=== PATIENT | female | born 1960 | race Caucasian/White ===

== ENCOUNTER → 2019-12-18 10:06 | Outpatient (CLI) | payer OTHER, SELFPAY ==
[2019-12-18 12:54] LABS: Alanine Aminotransferase 44 IU/L (<35); Albumin 4.6 g/dL (3.5-5.0); Albumin Globulin Ratio 1.5 (1.0-2.8); Alkaline Phosphatase 93 U/L (38-126); Aspartate Aminotransferase 34 IU/L (14-36); Bilirubin Total 0.6 mg/dL (0.2-1.3); Blood Urea Nitrogen 15 mg/dL (7-17); Calcium 10.2 mg/dL (8.4-10.2); Carbon Dioxide 28 mmol/L (22-32); Chloride 103 mmol/L (98-107); Globulin 3.1 g/dL (1.7-4.1); Glucose 101 mg/dL (70-100); HEMOLYSIS < 15 (0-50); Potassium 5.1 mmol/L (3.4-5.1); Sodium 140 mmol/L (137-145); Total Protein 7.7 g/dL (6.3-8.2)
[2019-12-18 13:01] LABS: BUN Creatinine Ratio 19.7 (6-22); Estimated Glomerular Filt Rate > 60.0 mL/min (>60)
== END ==
PROVIDERS: Referring Provider Urology; Visit Provider Urology
DX: Q62.11 Congenital occlusion of ureteropelvic junction (principal)
CPT/HCPCS: 36415; 80053

== ENCOUNTER → 2019-12-19 09:32 | Outpatient (CLI) | payer OTHER, SELFPAY ==
--- NOTE | 2019-12-19 | DI.MG.S_ITS ---
BILATERAL DIGITAL SCREENING MAMMOGRAM 3D/2D WITH CAD: 12/19/2019 CLINICAL: Routine screening. Comparison is made to exams dated: 09/22/2018 mammogram, 08/17/2017 mammogram, and 07/28/2016 mammogram - [facility]. There are scattered fibroglandular elements in both breasts. Current study was also evaluated with a Computer Aided Detection (CAD) system. No significant masses, calcifications, or other findings are seen in either breast. There has been no significant interval change. IMPRESSION: NEGATIVE There is no mammographic evidence of malignancy. A 1 year screening mammogram is recommended. This exam was interpreted at Station ID: [id number]. NOTE: For mammograms, a report in lay terms will be sent to the patient. Approximately 15% of breast malignancies will not be visualized mammographically. In the management of a palpable breast mass, a negative mammogram must not discourage biopsy of a clinically suspicious lesion. Electronically Signed By: Jamie gaona/shi:12/19/2019 10:11:08 letter sent: Normal Exam ACR BI-RADS Category 1: Negative 3341F
--- NOTE | 2019-12-19 | DI.NM.S_ITS ---
PROCEDURE: NM RENAL FUNCTION W LASIX RADIOPHARMACEUTICAL: 10.5 mCi Tc-99m MAG3 IV and 40 mg furosemide IV. INDICATIONS: Congenital occlusion of ureterop TECHNIQUE: The patient was hydrated orally before the examination was begun. After intravenous administration of Tc-99m MAG3, posterior abdominal radionuclide angiogram and sequential (1 minute each frame) renal images were obtained. A time-activity curve for each kidney was generated and analyzed. To evaluate for obstruction, the patient was given 40 mg furosemide via slow intravenous injection after the start of the examination. Sequential images were obtained for up to an additional 20 minutes. COMPARISON: None. FINDINGS: Perfusion: There is normal vascular flow to both kidneys. Morphology: Both kidneys are normal in size and shape. No dilated collecting systems are seen. The ureters and bladder fill with tracer, and appear normal. Function: Both kidneys demonstrate normal cortical tracer uptake, with gknz-jh-tzuh activity ranging from 3 to 5 minutes. The right kidney contributes 42.5% of total renal function. The left kidney contributes 57.5% of total renal function. Lasix stimulation: After diuretic administration, there is prompt clearance of tracer activity from the renal collecting systems in both kidneys. The half-time of emptying of tracer activity from the right pelvicaliceal system is 4.7 minutes. The half-time of emptying from the left pelvicaliceal system is 5.2 minutes. Normal emptying half-times are less than 10 minutes; borderline ranges are from 10 to 20 minutes. IMPRESSION: 1. Normal radionuclide renogram. 2. Right kidney contributes 42.5% of total renal function. Left kidney contributes 57.5% of total renal function. 3. No evidence for renal obstruction. Dictated by: Pankaj Chao M.D. on 12/19/2019 at 11:58 Approved by: Pankaj Chao M.D. on 12/19/2019 at 12:09
== END ==
PROVIDERS: PCP Family Medicine; Referring Provider Family Medicine; Visit Provider Family Medicine
DX: Z12.31 Encounter for screening mammogram for malignant neoplasm of breast (principal); Q62.11 Congenital occlusion of ureteropelvic junction
CPT/HCPCS: 77063; 77067; 78708; A9562

== ENCOUNTER → 2020-04-20 09:18 | Outpatient (CLI) | payer OTHER, SELFPAY ==
[2020-04-21 09:46] LABS: COVID19 Sendout Not Detected (Not Detect)
== END ==
PROVIDERS: PCP Family Medicine; Visit Provider Nurse Practitioner
DX: Z11.59 Encounter for screening for other viral diseases (principal)
CPT/HCPCS: 87635

== ENCOUNTER 2020-04-23 08:47 | Day surgery (SDC) | payer OTHER, SELFPAY ==
[2020-04-23] VITALS (7 sets, daily range): BP systolic 95–141; BP diastolic 60–77; PULSE 54–74; RESP 12–20; TEMP 36.3–36.9; O2SAT 95–98; BMI 22.3
--- NOTE | 2020-04-23 | PATH_ITS ---
[facility] Accession Number: [id number] . 01 Material submitted: . PART A: colon - R COLON BX PART B: colon - L COLON BX PART C: colon - DESCENDING COLON POLYP . 01 Clinical history: . SDC . 02 Diagnosis: A-B. Right Colon, Left Colon, Biopsies: Colonic mucosa with no diagnostic abnormality. Negative for active, chronic, and microscopic colitis. Negative for dysplasia and malignancy. . C. Descending Colon, Polyp, Biopsy: Tubular adenoma. [facility] 04/25/2020 1635 Local . 02 Electronically signed: . Irma Laurent MD, Pathologist NPI- [id number] . 01 Gross description: . Part A: R COLON BX: Received in formalin are multiple fragment(s) of mahajan, soft tissue measuring 1.2 x 0.8 x 0.2 cm in aggregate submitted entirely in 1 cassette(s) Part B: L COLON BX: Received in formalin are multiple fragment(s) of mahajan, soft tissue measuring 0.8 x 0.6 x 0.2 cm in aggregate submitted entirely in 1 cassette(s) Part C: DESCENDING COLON POLYP: Received in formalin are 2 fragment(s) of mahajan, soft tissue measuring 0.9 x 0.8 x 0.2 cm to 0.6 x 0.2 x 0.1 cm submitted entirely in 1 cassette(s) /QMAGGIE 04/24/2020 1011 Local . 02 Pathologist provided ICD-10: R19.7, D12.4 . 02 CPT . 220643, 941610, 789266 Performed at: [address], [place], [place] [id number] MD Maciej River MD Phone: [phone] Performed at: 02 [facility] [address] [place] [id number] MD Irma Laurent MD Phone: [phone]
--- NOTE | 2020-04-23 07:56 | PM.HP.1 ---
History of Present Illness History of Present Illness Date Patient Seen: 04/23/20 Chief complaint: SDC Narrative: 59-year-old female who I had seen on 03/06/2020 due to chronic diarrhea with here for further evaluation. She continues to have loose stools although has some formed stools on occasion Meds Home Medications and Allergies Home Medications Medication Instructions Recorded Confirmed Type No Known Home Medications 04/23/20 04/23/20 History Allergies Allergy/AdvReac Type Severity Reaction Status Date / Time No Known Drug Allergies Allergy Verified 04/23/20 09:01 Exam Narrative Exam Narrative: General: Patient is well developed, not in apparent distress Cardiovascular: Regular rate and rhythm, no murmurs, rubs, or gallops; no evidence of edema; no palpable abdominal aortic aneurysm Gastrointestinal: Normoactive bowel sounds, soft, nontender, nondistended, no rebound tenderness, no hepatosplenomegaly, no evidence of hernia Assessment & Plan Assessment & Plan narrative: 59-year-old female who is here for further evaluation of chronic diarrhea by means of colonoscopy Regarding the procedure(s), the risks and potential complications, benefits, and alternatives (including not doing the procedure) were discussed with the patient. The risks include but are not limited to bleeding, splenic injury, infection, perforation which may require surgical intervention, missed lesions, and adverse reactions to sedative medicines. After a question and answer period, the patient agreed to proceed with the procedure(s) and gives informed consent.
[2020-04-23] MEDS: SODIUM CHLORIDE 0.9% 1,000 ML 70 ML IV (09:01)
[2020-04-23] MEDS: fentaNYL 250 MCG/5 ML INJ IV (09:46)
[2020-04-23] MEDS: MIDAZOLAM 5 MG/5 ML VIAL IV (09:46)
--- NOTE | 2020-04-23 09:47 | PM.OP.ENDO ---
Operative Date/Time/Diagnoses Date of procedure: 04/23/20 Procedure Notes Procedure in detail: Surgeon: Vadim Scott MD Procedure: Colonoscopy with polypectomy and biopsy Preoperative diagnosis: Chronic diarrhea Postoperative diagnosis: Descending colon polyp status post polypectomy; grade 2 internal hemorrhoids Medications: Conscious sedation using 6 mg IV of Midazolam and 100 mcg IV of Fentanyl Preanesthesia Assessment An H and P was performed/updated and the Px?s ASA class is 1. Risks and complications including infection, bleeding, missed lesions, perforation, need for surgery in case of perforation, prolonged hospital stay, and were explained. A brief question and answer period was allotted and once all questions were answered, informed consent was obtained. The patient was brought back to the procedure room and placed on standard monitoring. The patient?s vital signs were monitored continuously throughout the entire procedure. Prior to starting, a timeout was performed to confirm the patient?s identity, allergies, medications, and procedure. Procedure in detail The patient was placed in left lateral decubitus position and once adequate sedation was obtained a TIBURCIO was performed. The digital rectal examination did not reveal any palpable lesions. The tip of the colonoscope was placed in the anal canal and advanced without difficulty all the way to the cecum which was identified by the appendiceal orifice and the ileocecal valve. The terminal ileum was intubated to a distance of 5 cm from the ileocecal valve and the mucosa appeared normal. The colonoscope was then brought back to the cecum and careful examination of all stern of the colon was performed with irrigation of any residual stool. The colonic mucosa appeared normal throughout the entire colon. Biopsies were taken from the right and left colon to rule out microscopic colitis. Bleeding from biopsies with minimal In the descending colon, a 3 mm sessile polyp was removed by means of cold snare. Resection and retrieval was complete minimal bleeding. Retroflexion was performed in the rectum which revealed grade 2 internal hemorrhoids The patient tolerated the procedure well and will be brought back to the recovery area to be discharged once criteria are met. The prep was judged to be good and adequate to identify polyps less than 5 mm. The withdrawal time was 9 minutes. The total physician intraservice time was 16 minutes. Complications There were no complications and estimated blood loss was minimal. Recommendations: Resume previous diet; consider doing a lactose-free diet Use probiotics daily for at least 1 month, if you are not doing so already Follow up pathology results Repeat colonoscopy in 5 or 7 or 10 years depending on pathology results Call our office ([facility]) to schedule follow-up with me in 1-2 months if you have persistent symptoms An emergency contact number was given to the patient for any complications related to the procedure
== END 2020-04-23 10:45 | disposition home or self-care (01) ==
PROVIDERS: PCP Family Medicine; Referring Provider Family Medicine; Visit Provider Internal Medicine Gastroenterology
PROC: 0DJD8ZZ Inspection of Lower Intestinal Tract, Via Natural or Artificial Opening Endoscopic (ICD-10-PCS; CPT 45378; principal; 2020-04-23 10:00)
DX: K52.9 Noninfective gastroenteritis and colitis, unspecified (principal); K64.1 Second degree hemorrhoids; D12.4 Benign neoplasm of descending colon
CPT/HCPCS: 45385; J2250; J3010

== ENCOUNTER → 2021-03-28 08:52 | Outpatient (CLI) | payer OTHER, SELFPAY ==
--- NOTE | 2021-03-28 | DI.MG.S_ITS ---
BILATERAL DIGITAL SCREENING MAMMOGRAM 3D/2D WITH CAD: 03/28/2021 CLINICAL: Routine screening. Family history of breast cancer. Comparison is made to exams dated: 12/19/2019 mammogram - [facility], 09/22/2018 mammogram, 08/17/2017 mammogram, and 07/28/2016 mammogram - [facility]. There are scattered fibroglandular elements in both breasts. Current study was also evaluated with a Computer Aided Detection (CAD) system. No significant masses, calcifications, or other findings are seen in either breast. There has been no significant interval change. IMPRESSION: NEGATIVE There is no mammographic evidence of malignancy. A 1 year screening mammogram is recommended. This exam was interpreted at Station ID: [id number]. NOTE: For mammograms, a report in lay terms will be sent to the patient. Approximately 15% of breast malignancies will not be visualized mammographically. In the management of a palpable breast mass, a negative mammogram must not discourage biopsy of a clinically suspicious lesion. Electronically Signed By: Jamie gaona/shi:03/31/2021 08:10:21 letter sent: Normal Exam ACR BI-RADS Category 1: Negative 3341F
== END ==
PROVIDERS: PCP Family Medicine; Referring Provider Family Medicine; Visit Provider Family Medicine
DX: Z12.31 Encounter for screening mammogram for malignant neoplasm of breast (principal); Z80.3 Family history of malignant neoplasm of breast
CPT/HCPCS: 77063; 77067

== ENCOUNTER → 2022-02-04 14:57 | Outpatient (CLI) | payer OTHER, SELFPAY ==
--- NOTE | 2022-02-04 14:59 | DI.US.S_ITS ---
PROCEDURE: US CAROTID DOPPLER BI INDICATIONS: Familial hypercholesterolemia TECHNIQUE: Color and pulse Doppler interrogation was performed of both carotid systems, with image documentation and velocity measurements. COMPARISON: None. FINDINGS: Stenosis calculations are based on SRU (Society of Radiologists in Ultrasound) criteria. The flow velocities and the arterial waveforms are normal within both carotid arterial systems. No significant atherosclerotic plaque is seen. The estimated degree of internal carotid artery stenosis is less than 50%. Antegrade flow is confirmed within both vertebral arteries. IMPRESSION: No hemodynamically significant stenosis is seen. Dictated by: Juan M Navarro M.D. on 02/04/2022 at 15:21 Approved by: Juan M Navarro M.D. on 02/04/2022 at 15:22
== END ==
PROVIDERS: PCP Family Medicine; Referring Provider Internal Medicine Cardiovascular Disease; Visit Provider Internal Medicine Cardiovascular Disease
DX: E78.01 Familial hypercholesterolemia (principal); Z82.3 Family history of stroke; R06.00 Dyspnea, unspecified
CPT/HCPCS: 93880

== ENCOUNTER → 2022-03-30 10:22 | Outpatient (CLI) | payer OTHER, SELFPAY ==
--- NOTE | 2022-03-30 | DI.MG.S_ITS ---
BILATERAL DIGITAL SCREENING MAMMOGRAM 3D/2D WITH CAD: 03/30/2022 CLINICAL: Routine screening. Family history of breast cancer. Comparison is made to exams dated: 03/28/2021 mammogram, 12/19/2019 mammogram - [facility], and 09/22/2018 mammogram - [facility]. There are scattered areas of fibroglandular density in both breasts (category b / 25%-50% glandular tissue). Current study was also evaluated with a Computer Aided Detection (CAD) system. No significant masses, calcifications, or other findings are seen in either breast. There has been no significant interval change. IMPRESSION: NEGATIVE There is no mammographic evidence of malignancy. A 1 year screening mammogram is recommended. Based on the Tyrer Cuzick model (a risk assessment model) the patient's lifetime risk is 4.6% and her 10 year risk is 1.9%. According to the ACR, ACS, and NCCN guidelines, an annual breast MRI exam along with mammogram is recommended if the patient's lifetime risk is 20% or greater. This exam was interpreted at Station ID: [id number]. NOTE: For mammograms, a report in lay terms will be sent to the patient. Approximately 15% of breast malignancies will not be visualized mammographically. In the management of a palpable breast mass, a negative mammogram must not discourage biopsy of a clinically suspicious lesion. Electronically Signed By: Navdeep villa/shi:03/30/2022 14:11:13 letter sent: Normal Exam ACR BI-RADS Category 1: Negative 3341F
== END ==
PROVIDERS: PCP Family Medicine; Referring Provider Family Medicine; Visit Provider Family Medicine
DX: Z12.31 Encounter for screening mammogram for malignant neoplasm of breast (principal); Z80.3 Family history of malignant neoplasm of breast
CPT/HCPCS: 77063; 77067

== ENCOUNTER → 2023-04-08 08:40 | Outpatient (CLI) | payer OTHER, SELFPAY ==
--- NOTE | 2023-04-08 | DI.MG.S_ITS ---
BILATERAL DIGITAL SCREENING MAMMOGRAM 3D/2D WITH CAD: 04/08/2023 CLINICAL: Routine screening. Comparison is made to exams dated: 03/30/2022 mammogram, 03/28/2021 mammogram, and 12/19/2019 mammogram - [facility]. There are scattered areas of fibroglandular density in both breasts (category b / 25%-50% glandular tissue). Current study was also evaluated with a Computer Aided Detection (CAD) system. No significant masses, calcifications, or other findings are seen in either breast. There has been no significant interval change. IMPRESSION: NEGATIVE There is no mammographic evidence of malignancy. A 1 year screening mammogram is recommended. Based on the Tyrer Cuzick model (a risk assessment model) the patient's lifetime risk is 4.5% and her 10 year risk is 1.9%. According to the ACR, ACS, and NCCN guidelines, an annual breast MRI exam along with mammogram is recommended if the patient's lifetime risk is 20% or greater. This exam was interpreted at Station ID: [id number]. NOTE: For mammograms, a report in lay terms will be sent to the patient. Approximately 15% of breast malignancies will not be visualized mammographically. In the management of a palpable breast mass, a negative mammogram must not discourage biopsy of a clinically suspicious lesion. Electronically Signed By: Rickey bauman/shi:04/08/2023 15:01:15 letter sent: Normal Exam ACR BI-RADS Category 1: Negative 3341F
== END ==
PROVIDERS: PCP Family Medicine; Referring Provider Family Medicine; Visit Provider Family Medicine
DX: Z12.31 Encounter for screening mammogram for malignant neoplasm of breast (principal)
CPT/HCPCS: 77063; 77067

== ENCOUNTER → 2024-03-29 11:46 | Outpatient (CLI) | payer OTHER, SELFPAY | PROVIDERS: Family Provider Family Medicine; PCP Family Medicine; Referring Provider Family Medicine; Visit Provider Family Medicine | DX: R20.2 Paresthesia of skin (principal); M54.12 Radiculopathy, cervical region | CPT/HCPCS: 95886; 95909 ==

== ENCOUNTER → 2024-04-09 09:48 | Outpatient (CLI) | payer OTHER, SELFPAY ==
--- NOTE | 2024-04-09 | DI.MG.S_ITS ---
BILATERAL DIGITAL SCREENING MAMMOGRAM 3D/2D WITH CAD: 04/09/2024 CLINICAL: Routine screening. Comparison is made to exams dated: 04/08/2023 mammogram, 03/30/2022 mammogram, 03/28/2021 mammogram, 12/19/2019 mammogram - [facility], 09/22/2018 mammogram, and 08/17/2017 mammogram - [facility]. There are scattered areas of fibroglandular density (category b / 25%-50% glandular tissue). Current study was also evaluated with a Computer Aided Detection (CAD) system. There are benign post operative findings in both breasts. No significant masses, calcifications, or other findings are seen in either breast. There has been no significant interval change. IMPRESSION: BENIGN There is no mammographic evidence of malignancy. A 1 year screening mammogram is recommended. Based on the Tyrer Cuzick model (a risk assessment model) the patient's lifetime risk is 4.4% and her 10 year risk is 1.9%. According to the ACR, ACS, and NCCN guidelines, an annual breast MRI exam along with mammogram is recommended if the patient's lifetime risk is 20% or greater. This exam was interpreted at Station ID: [id number]. NOTE: For mammograms, a report in lay terms will be sent to the patient. Approximately 15% of breast malignancies will not be visualized mammographically. In the management of a palpable breast mass, a negative mammogram must not discourage biopsy of a clinically suspicious lesion. Electronically Signed By: Karley Love M.D., Ph.D. sheila/shi:04/10/2024 12:45:18 letter sent: Normal Exam ACR BI-RADS Category 2: Benign 3342F
== END ==
LOC: MAMMO 09:48
PROVIDERS: Family Provider Family Medicine; PCP Family Medicine; Referring Provider Family Medicine; Visit Provider Family Medicine
DX: Z12.31 Encounter for screening mammogram for malignant neoplasm of breast (principal)
CPT/HCPCS: 77063; 77067

== ENCOUNTER → 2024-05-01 07:26 | Outpatient (CLI) | payer OTHER, SELFPAY ==
[2024-05-01 09:12] LABS: Cholesterol 166 mg/dL (140-199); HDL Cholesterol 52 mg/dL (40-60); LDL Cholesterol Calculated 89 mg/dL (<100); Triglycerides 125 mg/dL (35-150)
== END ==
PROVIDERS: Family Provider Family Medicine; PCP Family Medicine; Referring Provider Internal Medicine Cardiovascular Disease; Visit Provider Internal Medicine Cardiovascular Disease
DX: E78.01 Familial hypercholesterolemia (principal)
CPT/HCPCS: 36415; 80061

== ENCOUNTER → 2024-11-08 07:57 | Outpatient (CLI) | payer OTHER, SELFPAY ==
--- NOTE | 2024-11-08 07:59 | DI.ECHO.S_ITS ---
[facility] : : [address] [facility] : : [place], : : [place] [address] : : Phone: [phone] Echocardiogram Report + + :Name: REBEKAH GARCIA Study Date: 11/08/2024 Height: 62 in : :[facility] [place] Weight: 126 lb : : Gender: Female BSA: 1.6 m2 : :: 1960 Age: 64 yrs BP: 137/87 mmHg: :Reason For Study: SANCHEZ : :Ordering Physician: SIDNEY, : :JOANA Noriega Performed By: Erickson Loza : :Referring: UNSPECIFIED : + + Interpretation Summary 1) Normal left ventricular thickness, size, wall motion, and systolic function (EF 60-65%). 2) Normal right ventricular size and function. 3) No significant valvular abnormalities. 4) No prior Echo available for comparison. Procedure: A two-dimensional transthoracic echocardiogram with color flow and Doppler was performed. The study quality was technically good. There is no prior echocardiogram noted for this patient. The patient was in normal sinus rhythm during the exam. Left Ventricle: The left ventricle is normal in size. There is normal left ventricular wall thickness. There is no ventricular septal defect visualized. The ejection fraction is estimated to be 60-65%. There are no focal wall motion abnormalities. Diastolic parameters suggest a relaxation abnormality of the left ventricle, consistent with probable normal filling pressures. Right Ventricle: The right ventricle is normal in size and function. Atria: The left atrial size is normal. Right atrial size is normal. There is no Doppler evidence for an interatrial shunt. Mitral Valve: The mitral valve leaflets appear normal. There is no evidence of stenosis, fluttering, or prolapse. There is trace mitral regurgitation. Aortic Valve: The aortic valve is trileaflet. The aortic valve opens well. There is no aortic valve stenosis. No aortic regurgitation is present. Tricuspid Valve: The tricuspid valve leaflets are thin and pliable. No tricuspid regurgitation. Pulmonary artery pressures cannot be estimated because of the lack of a measurable TR jet velocity. Pulmonic Valve: The pulmonic valve is not well seen, but is grossly normal. There is no pulmonic valvular regurgitation. Great Vessels: The aortic root is normal size. The dimensions of the ascending aorta are normal. The pulmonary artery is normal size. The IVC is of normal diameter and collapses greater than 50% with a sniff. This suggests a low right atrial pressure of 3 mm Hg. Pericardium/ Pleura There is no pericardial effusion. There is no pleural effusion. MMode/2D Measurements & Calculations LVIDd: 4.8 cm AoV Openin.9 cm LVIDs: 2.8 cm LVOT diam: 2.2 cm IVSd: 0.79 cm Ao root diam: 3.0 cm LVPWd: 0.84 cm asc Aorta Diam: 3.2 cm LV jonas. diameter/BSA (cm/m^2): 3.1 Ao Arch Diam (Prox Trans): 1.6 cm LV sys. diameter/BSA (cm/m^2): 1.8 FS: 41.8 % EPSS: 0.67 cm LA A2 area: 16.1 cm2 RA long axis: 4.2 cm LA A4 area: 15.1 cm2 RA area: 10.9 cm2 LA length (vol): 4.8 cm RA vol: 24.2 ml LA vol: 42.8 ml RA : 15.4 ml/m2 LA vol index: 27.3 ml/m2 RVD1 (basal): 3.1 cm IVC diam: 1.2 cm RVD2 (mid): 2.6 cm TAPSE: 2.2 cm Doppler Measurements & Calculations Ao V2 max: 130.3 cm/sec LVOT Max Ace: 98.0 cm/sec Ao V2 mean: 92.7 cm/sec LV V1 max P.8 mmHg Ao V2 VTI: 31.8 cm LV V1 VTI: 22.9 cm Ao max P.8 mmHg Ao mean P.8 mmHg AMINA(I,D): 2.7 cm2 MV E max ace: 49.8 cm/sec AMINA(V,D): 2.8 cm2 MV A max ace: 62.2 cm/sec AMINA indexed to BSA (cm^2/m^2): 1.7 MV E/A: 0.80 sev ratio: 0.72 Med Peak E' Ace: 4.5 cm/sec E/E' med: 11.1 Lat Peak E' Ace: 6.9 cm/sec E/E' lat: 7.2 E/e' average: 9.2 MV dec time: 0.23 sec PA V2 max: 66.5 cm/sec PA V2 mean: 45.5 cm/sec PA mean P.92 mmHg PA pr(Accel): 25.9 mmHg SV(LVOT): 85.4 ml [place] Physician:11:20 PM
== END ==
LOC: ECHO 07:58
PROVIDERS: Family Provider Family Medicine; PCP Family Medicine; Referring Provider Physician Assistant; Visit Provider Physician Assistant
DX: R06.09 Other forms of dyspnea (principal)
CPT/HCPCS: 93306